=== PATIENT | male | born 1975 | race Caucasian/White ===

== ENCOUNTER 2017-01-14 18:47 | Inpatient (IN) | payer SELFPAY ==
[~2017-01-14] VITALS: Ht 182.8 cm; Wt 111.8 kg
--- NOTE | ~2017-01-14 | O ---
[place], [place] OPERATIVE NOTE [facility]: [id number] UN[facility] #: [id number] ROOM: 401 DOCTOR: CORAL GUTIERREZLEON BIRTHDATE: [birth year] DOS: 01/15/2017 HISTORY OF PRESENT ILLNESS: A 41-year-old patient who presented with chief complaint of relentless nausea, vomiting, epigastric distress, dyspepsia. The patient apparently has been on nonsteroidal anti-inflammatory. His gallbladder sonogram shows steatosis of the liver, gallbladder otherwise benign. White blood cell was 13 lately and H and H of 14 and 43, hemoglobin A1c reduced to 6.1, comprehensive metabolic panel, electrolytes balanced, calcium 7.7. Triglyceride 173. Liver function test otherwise unremarkable. CT scan of the abdomen, no evidence of nephrolithiasis or hydronephrosis. Lactic acid 1.4. PAST MEDICAL HISTORY: Cryptosporidium, unilateral history, avascular necrosis of bilateral hips, DVT, pilonidal cyst. PAST SURGICAL HISTORY: Appendectomy, hip prosthesis, vertebral decompression of the lower back, history of orchiopexy. SOCIAL HISTORY: Nonsmoker, nonalcohol consumer. FAMILY HISTORY: Noncontributory. ALLERGIES: OXYCODONE, PREDNISONE. MEDICATIONS: List has been reviewed. PROCEDURE: Today's procedure part of investigation is panendoscopy plus biopsies. PREMEDICATION: Versed and Diprivan. SCOPE: Olympus forward-viewing gastroscope Q10 video. REPORT: After putting the patient in the left lateral position and after application of lubricant to the scope, the scope was introduced. Thereafter, under direct visualization, advanced to the length of esophagus without difficulty. Distal esophageal ulcer, which is partially healing was identified, irregular Z line was defined. Biopsy obtained. Small hiatal hernia was noticed approximately 2-1/2 cm. Gastric pouch was entered. Gastritis seen. Antral biopsy obtained. Duodenal bulb, second and third part within normal limits. The patient extubated, tolerated procedure well. IMPRESSION: Distal esophageal ulcer secondary to reflux, hiatal hernia, gastritis. PLAN AND DISCUSSION: While he is inpatient, Protonix 40 mg IV b.i.d., Gaviscon 1 tablet Extra Strength tablet 1 p.c. meals and 2 at bedtime and antiemetics, soft diet, antireflux, clinical reassessment. [place], [place] OPERATIVE NOTE NAME: ANDREE COLVIN UNIT #: [id number] ROOM: 401 DOCTOR: CORAL GUTIERREZ,LEON BIRTHDATE: [birth year] LEON MONCADA MD CM:OPRECORD:OPERATIVE NOTE 1552 56 LEON MONCADA MD 01/15/171956 interface
--- NOTE | ~2017-01-14 | CON ---
[place], [place] REPORT OF CONSULTATION NAME: ANDREE COLVIN UNIT #: [id number] ROOM: 401 DOCTOR: RCIH HUYNH MD BIRTHDATE: [birth year] DOS: 01/16/2017 HISTORY OF PRESENT ILLNESS: The patient is a 41-year-old male admitted with abdominal pain at the Medical Unit. He asked to see the psychologist and a consult was called. He reported some anxiety because of his ill health, financial constraints that is all leading to him feeling a little anxious. States that he is not depressed. He has been fighting for social security, which is pending. Denies any neurovegetative symptoms of depression. Denies any manic or psychotic symptoms. Denies any thoughts of self-harm or harm to others. MEDICAL HISTORY: Pains and aches, fatty liver. MENTAL STATUS EXAMINATION: The patient is lying in bed. He is oriented x 3. He is calm and interactive. Mood euthymic, broad range affect. No evidence of psychosis at present. No suicidal or homicidal thoughts. ASSESSMENT AND PLAN: Unspecified anxiety disorder. PLAN: Discussed options of meds, but he is not receptive to any medicine at this time and he does not want any medicines. He just wanted to talk to the psychologist, so we shall monitor. RICH HUYNH MD CM:CONSTR:REPORT OF CONSULTATION 1208 01/18/17 0700 interface
[2017-01-14 18:51] VITALS: BP 112/93
[2017-01-14 19:23] LABS: BASO # 0.1 10*3/uL (0.0-0.1); BASO % 0.3 % (0.0-1.0); EOS # 0.1 10*3/uL (0.0-0.4); EOS % 0.5 % (1.0-4.0); HEMATOCRIT 49.4 % (42.0-52.0); HEMOGLOBIN 16.6 g/dl (14.0-18.0); IG # 0.2 10*3/uL (0.0-0.1); LYMPH # 4.5 10*3/uL (1.3-4.4); MEAN CELL VOLUME 88.5 fl (80.0-94.0); MEAN CORPUSCULAR HGB 29.7 pg (27.0-31.0); MEAN CORPUSCULAR HGB CONC 33.6 g/dl (33.0-37.0); MEAN PLATELET VOLUME 10.1 fl (9.6-12.3); MONO # 1.2 10*3/uL (0.1-1.0); NEUT # 11.2 10*3/uL (2.3-7.9); NEUT % 65.3 % (47.0-73.0); PLATELET COUNT AUTOMATED 385 10*3/uL (130-400); RED BLOOD COUNT 5.58 10*6/uL (4.50-5.90); RED CELL DISTRI WIDTH 13.5 % (0-14.5); WHITE BLOOD COUNT 17.2 10*3/uL (4.8-10.8)
[2017-01-14 19:39] LABS: ALBUMIN 3.7 gm/dl (3.1-4.5); ALKALINE PHOSPHATASE 150 U/L (45-117); BILIRUBIN, TOTAL 0.3 mg/dl (0.2-1.0); BUN 15 mg/dl (7-24); CARBON DIOXIDE 23 mmol/L (21-32); CHLORIDE 106 mmol/L (98-107); EST GLOM FILT AFRICAN AMERICAN > 60 ml/min; GLUCOSE 95 mg/dL (65-99); POTASSIUM 4.1 mmol/L (3.5-5.1); SGOT/AST 30 IU/L (3-35); SGPT/ALT 48 U/L (12-78); SODIUM 139 mmol/L (136-145); TOTAL PROTEIN 7.8 gm/dL (6.4-8.2)
[2017-01-14 19:43] LABS: BILIRUBIN NEGATIVE (NEGATIVE); BLOOD NEGATIVE (NEGATIVE); CLARITY CLEAR (CLEAR); COLOR YELLOW (YELLOW); GLUCOSE NEGATIVE (NEGATIVE); KETONE NEGATIVE (NEGATIVE); LEUKO ESTERASE NEGATIVE (NEGATIVE); NITRITE NEGATIVE (NEGATIVE); PH 5.5 (5.0-9.0); PROTEIN NEGATIVE (NEGATIVE); SPECIFIC GRAVITY >= 1.030 (1.005-1.030); UROBILINOGEN 0.2 E.U./dl (0.2-1.0)
[2017-01-14 19:54] LABS: BACTERIA TRACE; HYALINE CAST 16-20; MUCOUS 2+
[2017-01-14 19:56] LABS: EPITHELIAL CELLS 0-2; URINE REFLEX COMMENT NO (NO)
[2017-01-14 20:31] VITALS: BP 118/88
[2017-01-14 22:47] VITALS: BP 121/89
[2017-01-15] VITALS (8 sets, daily range): BP systolic 96–136; BP diastolic 53–94
[2017-01-15] MEDS ORDERED: ASPIRIN ADULT L81 M1 PO (04:32)
[2017-01-15 05:54] LABS: ALBUMIN 2.8 gm/dl (3.1-4.5); BILIRUBIN, TOTAL 0.4 mg/dl (0.2-1.0); BUN 12 mg/dl (7-24); CARBON DIOXIDE 28 mmol/L (21-32); CHLORIDE 109 mmol/L (98-107); CHOLESTEROL 192 mg/dL (<200); EST GLOM FILT AFRICAN AMERICAN > 60 ml/min; GLUCOSE 94 mg/dL (65-99); POTASSIUM 3.8 mmol/L (3.5-5.1); SGOT/AST 16 IU/L (3-35); SGPT/ALT 35 U/L (12-78); SODIUM 144 mmol/L (136-145); TRIGLYCERIDES 173 mg/dl (<150); VLDL CHOLESTEROL 35 mg/dL (6-40)
[2017-01-15 06:01] LABS: ALKALINE PHOSPHATASE 112 U/L (45-117); FREE T4 0.79 ng/dl (0.76-1.46); HDL CHOLESTEROL 28 mg/dl (40-60); HEMATOCRIT 43.4 % (42.0-52.0); LDL CHOLESTEROL 129 mg/dL (9-159); MEAN CORPUSCULAR HGB 29.8 pg (27.0-31.0); MEAN CORPUSCULAR HGB CONC 32.7 g/dl (33.0-37.0); MEAN PLATELET VOLUME 10.7 fl (9.6-12.3); PLATELET COUNT AUTOMATED 317 10*3/uL (130-400); RED BLOOD COUNT 4.77 10*6/uL (4.50-5.90); RED CELL DISTRI WIDTH 13.8 % (0-14.5); TOTAL PROTEIN 6.1 gm/dL (6.4-8.2); WHITE BLOOD COUNT 13.6 10*3/uL (4.8-10.8)
[2017-01-15 06:12] LABS: HEMOGLOBIN A1c 6.1 % (4.8-5.6)
[2017-01-15 06:21] LABS: PROTHROMBIN TIME 10.3 SECONDS (9.0-12.4)
[2017-01-15 06:27] LABS: HEMOGLOBIN 14.2 g/dl (14.0-18.0)
[2017-01-15 07:19] LABS: EOSINOPHIL # 0.1 10*3/uL (0-0.4); EOSINOPHILS 1 % (1-4); NEUTROPHIL # 7.5 10*3/uL (2.3-7.9); NEUTROPHILS 55 % (47-73); PLATELET SUFFICIENCY NORMAL (NORMAL); TOTAL CELLS COUNTED 100 #CELLS
[2017-01-15 13:12] LABS: FOLIC ACID 5.98 ng/mL (>5.38); VITAMIN D, 25-HYDROXY 10.4 ng/mL (30-100)
[2017-01-16] VITALS: BP 109/70
[2017-01-16 05:53] LABS: BASO % 0.4 % (0.0-1.0); EOS # 0.1 10*3/uL (0.0-0.4); EOS % 1.2 % (1.0-4.0); HEMATOCRIT 43.2 % (42.0-52.0); HEMOGLOBIN 13.9 g/dl (14.0-18.0); IG # 0.1 10*3/uL (0.0-0.1); LYMPH # 4.6 10*3/uL (1.3-4.4); LYMPH % 40.7 % (27.0-41.0); MEAN CELL VOLUME 91.9 fl (80.0-94.0); MEAN CORPUSCULAR HGB 29.6 pg (27.0-31.0); MEAN CORPUSCULAR HGB CONC 32.2 g/dl (33.0-37.0); MEAN PLATELET VOLUME 10.7 fl (9.6-12.3); MONO # 0.8 10*3/uL (0.1-1.0); MONO % 6.8 % (3.0-9.0); NEUT # 5.7 10*3/uL (2.3-7.9); NEUT % 50.3 % (47.0-73.0); PLATELET COUNT AUTOMATED 294 10*3/uL (130-400); RED CELL DISTRI WIDTH 13.4 % (0-14.5); WHITE BLOOD COUNT 11.3 10*3/uL (4.8-10.8)
[2017-01-16 06:20] LABS: ALBUMIN 3.1 gm/dl (3.1-4.5); ALKALINE PHOSPHATASE 115 U/L (45-117); BILIRUBIN, TOTAL 0.3 mg/dl (0.2-1.0); BUN 9 mg/dl (7-24); CARBON DIOXIDE 28 mmol/L (21-32); CHLORIDE 109 mmol/L (98-107); EST GLOM FILT AFRICAN AMERICAN > 60 ml/min; GLUCOSE 84 mg/dL (65-99); POTASSIUM 3.9 mmol/L (3.5-5.1); SGOT/AST 19 IU/L (3-35); SGPT/ALT 37 U/L (12-78); SODIUM 144 mmol/L (136-145); TOTAL PROTEIN 6.4 gm/dL (6.4-8.2)
[2017-01-16 06:30] LABS: INTERNATIONAL NORM RATIO 0.9 (2.0-3.5); PROTHROMBIN TIME 9.9 SECONDS (9.0-12.4)
[2017-01-16 08:00] VITALS: BP 156/98
[2017-01-16] MEDS ORDERED: ATIVAN2 M1 PO (10:41)
[2017-01-16] MEDS ORDERED: VISTARIL25 M2 PO ×2 (10:41→10:45)
[2017-01-16] MEDS ORDERED: PANTOPRAZOLE SO40 MG PO (10:42)
[2017-01-16] MEDS ORDERED: GAVISCON 80-141 EACH PO (10:42)
== END 2017-01-16 11:41 | disposition home or self-care (01) | DRG 872 ==
LOC: ED 18:47 → 4E 22:24 → EDHOLD 22:24 → 4E 22:39
PROVIDERS: Family Medicine; Internal Medicine; Nurse Practitioner Family
PROC: 0DB58ZX Excision of Esophagus, Via Natural or Artificial Opening Endoscopic, Diagnostic (ICD-10-PCS; principal; 2017-01-15)
DX: A41.9 Sepsis, unspecified organism (principal); E11.65 Type 2 diabetes mellitus with hyperglycemia; K76.0 Fatty (change of) liver, not elsewhere classified; K22.10 Ulcer of esophagus without bleeding; K52.9 Noninfective gastroenteritis and colitis, unspecified; E78.5 Hyperlipidemia, unspecified; E53.8 Deficiency of other specified B group vitamins; E66.9 Obesity, unspecified; Z96.643 Presence of artificial hip joint, bilateral; Z86.718 Personal history of other venous thrombosis and embolism; Z79.01 Long term (current) use of anticoagulants; Z90.49 Acquired absence of other specified parts of digestive tract; Z80.0 Family history of malignant neoplasm of digestive organs; Z83.3 Family history of diabetes mellitus; Z88.8 Allergy status to other drugs, medicaments and biological substances; Z68.33 Body mass index [BMI] 33.0-33.9, adult

== ENCOUNTER 2017-02-19 12:15 | Inpatient (IN) | payer SELFPAY ==
[~2017-02-19] VITALS: Ht 182.9 cm; Wt 112.1 kg
--- NOTE | ~2017-02-19 | CON ---
[place], [place] REPORT OF CONSULTATION NAME: ANDREE COLVIN UNIT #: [id number] ROOM: 518 DOCTOR: LEON MONCADA MD BIRTHDATE: [birth year] DOS: 02/22/2017 HISTORY OF PRESENT ILLNESS: A 41-year-old patient who has presented with chief complaint of hematemesis and was admitted for such through Emergency Room. I have been called for consultation, follow up on hematemesis. Initially, his white blood cell was 10, H and H of 14 and 43; followup CBC, no acute drop, H and H of 14 and 42. Blood cultures negative. Comprehensive metabolic panel, electrolyte balanced, alkaline phosphatase 143. His x-rays of the lower back, mild degenerative changes. CT scan of lumbar, no acute compression, no acute malignancy was found. Lactic acid followup was normal. Hemoglobin A1c 5.9, in normal limit. Blood cultures negative. MRI of lumbar spine, mild lumbar lordosis, no other acute pathology, no significant central stenosis. PAST MEDICAL HISTORY: History of pilonidal cyst, diabetes mellitus, fatty liver, dyslipidemia, DVT of upper extremity. He says that he has avascular necrosis of both hips. PAST SURGICAL HISTORY: Bilateral hip prosthesis, appendectomy, knee surgery. SOCIAL HISTORY: Nonsmoker, nonalcohol consumer, one can of chew tobacco per week. FAMILY HISTORY: Noncontributory. ALLERGIES: OXYCODONE, PREDNISONE; he claims was the cause of the avascular necrosis that he has taken 3 weeks, most unlikely scenario. REVIEW OF SYSTEMS: HEENT: Denies double vision, blurred vision. RESPIRATORY: Denies acute shortness of breath. CARDIOVASCULAR: Denies acute chest pain. DIGESTIVE SYSTEM: Hematemesis history. PHYSICAL EXAMINATION: VITAL SIGNS: Stable. HEENT: Head normocephalic, nontraumatic. Mouth and buccal mucosa benign. NECK: Supple, no thyromegaly, no cervical lymphadenopathy. CHEST: Symmetric anatomy, equal expansion. No wheeze, no rhonchi. HEART: Normal sinus rhythm, no gallop, no murmur. ABDOMEN: Soft. No hepato-organomegaly. Bowel sounds present. No pulsatile mass. EXTREMITIES: No cyanosis, no pedal edema. NEUROLOGIC: Alert, oriented to time, place, person. IMPRESSION: Hematemesis, etiology to be defined; history of diabetes, dyslipidemia, fatty liver. PLAN AND DISCUSSION: We are going to organize endoscopy of upper tract in search of etiology of hematemesis and clinical reassessment. [place], [place] REPORT OF CONSULTATION NAME: ANDREE COLVIN UNIT #: [id number] ROOM: 518 DOCTOR: LEON MONCADA MD BIRTHDATE: [birth year] LEON MONCADA MD CM:CONSTR:REPORT OF CONSULTATION 1643 02/23/17 0048 interface
--- NOTE | ~2017-02-19 | O ---
[place], [place] OPERATIVE NOTE [id number] UNIT #: [id number] ROOM: 518 DOCTOR: LEON MONCADA MD BIRTHDATE: [birth year] DOS: This is a 41-year-old patient who presented with chief complaint of hematemesis, undergoing investigation. Consultation has been dictated. PROCEDURE: Today's procedure, part of investigation is panendoscopy. PREMEDICATION: Versed and Diprivan. SCOPE: Olympus forward-viewing gastroscope Q10 video. REPORT: After putting the patient in the left lateral position and after application of lubricant to the scope, the scope was introduced. Thereafter, under direct visualization, I advanced through the length of esophagus without difficulty. Distal esophagitis noted. Small hiatal hernia appreciated. Gastric pouch was entered. Gastritis seen. Duodenum was entered. IMPRESSION: Severe duodenitis, duodenal erosions were identified, photographed. Since patient has had biopsies done in past, patient was suctioned out, extubated, tolerated the procedure well. IMPRESSION: Distal esophagitis, small hiatal hernia, gastritis, severe duodenitis, duodenal erosions. PLAN AND DISCUSSION: Protonix 40 mg daily, would suffice management and supportive therapy. Diet would be liberated to soft diet. LEON MONCADA MD CM:OPRECORD:OPERATIVE NOTE 1700 18 LEON MONCADA MD 02/22/172118 interface
[~2017-02-19 12:15] MED LIST: ASPIRIN ADULT L81 M1 PO; ATIVAN2 M1 PO; GAVISCON 80-141 EACH PO; PANTOPRAZOLE SO40 MG PO; VISTARIL25 M2 PO
[2017-02-19 12:24] VITALS: BP 165/62
[2017-02-19 13:51] LABS: BASO % 0.4 % (0.0-1.0); EOS # 0.1 10*3/uL (0.0-0.4); EOS % 0.7 % (1.0-4.0); HEMATOCRIT 43.5 % (42.0-52.0); HEMOGLOBIN 14.7 g/dl (14.0-18.0); LYMPH # 3.2 10*3/uL (1.3-4.4); LYMPH % 30.6 % (27.0-41.0); MEAN CELL VOLUME 89.7 fl (80.0-94.0); MEAN CORPUSCULAR HGB 30.3 pg (27.0-31.0); MEAN CORPUSCULAR HGB CONC 33.8 g/dl (33.0-37.0); MEAN PLATELET VOLUME 10.5 fl (9.6-12.3); MONO # 0.6 10*3/uL (0.1-1.0); MONO % 5.7 % (3.0-9.0); NEUT # 6.4 10*3/uL (2.3-7.9); NEUT % 61.8 % (47.0-73.0); PLATELET COUNT AUTOMATED 303 10*3/uL (130-400); RED BLOOD COUNT 4.85 10*6/uL (4.50-5.90); RED CELL DISTRI WIDTH 13.6 % (0-14.5); WHITE BLOOD COUNT 10.4 10*3/uL (4.8-10.8)
[2017-02-19 14:20] LABS: ALBUMIN 3.2 gm/dl (3.1-4.5); BUN 12 mg/dl (7-24); CHLORIDE 106 mmol/L (98-107); CREATININE 1.15 mg/dL (0.70-1.30); POTASSIUM 3.5 mmol/L (3.5-5.1); SGOT/AST 17 IU/L (3-35); SGPT/ALT 31 U/L (12-78); SODIUM 142 mmol/L (136-145)
[2017-02-19 14:22] LABS: ALKALINE PHOSPHATASE 134 U/L (45-117); TOTAL PROTEIN 6.4 gm/dL (6.4-8.2)
--- NOTE | 2017-02-19 14:29 | NUR ---
MINIMAL RELIEF FROM PAIN MED JAIN. ADDITIONAL PAIN MED ORDERS TO BE PUT IN BY ISABEL PULLIAM
--- NOTE | 2017-02-19 15:37 | NUR ---
PT TO CAT SCAN.
--- NOTE | 2017-02-19 17:00 | NUR ---
REPORT FROM ALEXYS AT 1545.-EDNA NGUYEN RN
[2017-02-19 17:06] VITALS: BP 123/59
--- NOTE | 2017-02-19 17:08 | NUR ---
RAF SANDERS IN TO SEE PT. PT STATES "I DON'T WANT TO SEE A NURSE PRACTIONER,I WANT TO SEE A DOCTOR". DR DOE AWARE AND IS TO COME SEE PT. RFA SANDERS MADE PT AWARE OF NORMAL LABS AND DIAGNOSTICS. PT STATED "I STILL WANT TO SEE A DOCTOR"---EDNA NGUYEN RN
[2017-02-19 19:04] VITALS: BP 130/74
--- NOTE | 2017-02-19 19:28 | NUR ---
THIS RN ATTEMPTED TO CALL REPORT.INSTRUCTED TO CALL BACK.
[2017-02-19 20:30] VITALS: BP 137/87
--- NOTE | 2017-02-19 20:30 | NUR ---
Time: 2029 A 41 year old MALE admitted to 5E under services of REHANA HERRMANN DO. Pt. arrived via wheel chair from ER. Chief complaint: LEFT SIDED BACK PAIN. ZHEN FISHER
--- NOTE | 2017-02-19 21:10 | NUR ---
Called Dr. Marquez with bladder scan results. Bladder scanned patient and scan said volume of 0. Patient had voided when he first got to floor from ER. Told Dr. Marquez that and no new orders received at this time.
--- NOTE | 2017-02-19 21:21 | NUR ---
Medicated with Soma po prn for low back pain. Will monitor effectiveness. Call light within reach.
--- NOTE | 2017-02-19 23:10 | NUR ---
MEDICATED WITH MS SLOW IV PUSH FOR C/O BACK PAIN.
[2017-02-20] VITALS: BP 126/84
--- NOTE | 2017-02-20 02:00 | NUR ---
RESTING IN BED WITH EYES CLOSED. PAIN MEDICATION GIVEN EARLIER APPARENTLY EFFECTIVE.
--- NOTE | 2017-02-20 06:29 | NUR ---
MEDICATED WITH SOMA FOR C/O MUSCLE SPASMS.
--- NOTE | 2017-02-20 06:35 | NUR ---
MEDICATED WITH MS 2 MG SLOW IV PUSH FOR C/O BACK PAIN RATED AN 8/10.
[2017-02-20 06:36] LABS: BASO % 0.3 % (0.0-1.0); EOS # 0.2 10*3/uL (0.0-0.4); EOS % 1.5 % (1.0-4.0); HEMATOCRIT 42.6 % (42.0-52.0); HEMOGLOBIN 13.9 g/dl (14.0-18.0); LYMPH # 3.2 10*3/uL (1.3-4.4); LYMPH % 32.3 % (27.0-41.0); MEAN CORPUSCULAR HGB 29.7 pg (27.0-31.0); MEAN CORPUSCULAR HGB CONC 32.6 g/dl (33.0-37.0); MEAN PLATELET VOLUME 10.6 fl (9.6-12.3); MONO # 0.9 10*3/uL (0.1-1.0); NEUT # 5.6 10*3/uL (2.3-7.9); NEUT % 56.1 % (47.0-73.0); PLATELET COUNT AUTOMATED 266 10*3/uL (130-400); RED BLOOD COUNT 4.68 10*6/uL (4.50-5.90); RED CELL DISTRI WIDTH 13.9 % (0-14.5)
[2017-02-20 07:09] LABS: BUN 12 mg/dl (7-24); CHLORIDE 108 mmol/L (98-107); CHOLESTEROL 184 mg/dL (<200); CREATININE 1.01 mg/dL (0.70-1.30); MAGNESIUM 2.3 mg/dL (1.5-2.1); PHOSPHOROUS 4.2 mg/dL (2.5-4.9); POTASSIUM 3.9 mmol/L (3.5-5.1); SODIUM 142 mmol/L (136-145); TRIGLYCERIDES 206 mg/dl (<150); VLDL CHOLESTEROL 41 mg/dL (6-40)
[2017-02-20 07:18] LABS: FREE T4 0.85 ng/dl (0.76-1.46); HDL CHOLESTEROL 28 mg/dl (40-60); LDL CHOLESTEROL 115 mg/dL (9-159)
[2017-02-20 07:50] LABS: VITAMIN D, 25-HYDROXY 11.9 ng/mL (30-100)
[2017-02-20 08:00] VITALS: BP 130/90
--- NOTE | 2017-02-20 11:24 | NUR ---
Pt medicated with morphine 2mg iv at his request for back pain. Pt refused toradol stating it is never effective for him.
[2017-02-20 12:00] VITALS: BP 132/80
--- NOTE | 2017-02-20 12:14 | NUR ---
pt stated morphine didnt really help his back pain and requested to have a norco at this time.
--- NOTE | 2017-02-20 13:20 | NUR ---
PT STATED NORCO WAS EFFECTIVE IN EASING HIS PAIN AND THAT HE WAS "OK RIGHT NOW".
--- NOTE | 2017-02-20 15:22 | NUR ---
PT MEDICATED WITH SOMA AT HIS REQUEST FOR CONTINUED BACK PAIN.
--- NOTE | 2017-02-20 15:32 | NUR ---
AFTER TAKING SOMA PT REQUESTED TO ALSO HAVE HIS MORPHINE FOR THE PAIN SINCE IT HAS BEEN 4 HOURS. PT MEDICATED WITH MORPHINE 2MG IV ORDERED.
[2017-02-20 16:00] VITALS: BP 124/91
--- NOTE | 2017-02-20 19:40 | NUR ---
MORPHINE GIVEN PER ORDER FOR LEFT LOWER BACK PAIN "8". SEE MAR.
[2017-02-20 20:00] VITALS: BP 130/89
--- NOTE | 2017-02-20 20:40 | NUR ---
morphine effective at reducing pain per pt.
--- NOTE | 2017-02-20 23:15 | NUR ---
C/O PAIN LEFT LOWER BACK RATED "7" SOMA AND VICODIN GIVEN PER PT REQUEST. PT. C/O ABOUT IV IN RIGHT HAND HURTING HIM. Heplock discontinued. Site symptomatic. Pressure applied. Sterile dressing applied. pt. wanted to shower before IV restarted. ED BRYANT J
--- NOTE | 2017-02-20 23:45 | NUR ---
IV started left forearm with #22 angiocath after 1ST attempts. The IV site was prepped with Chloraprep. Heparin lock attached. Sterile dressing applied. Patient tolerated precedure well. Procedure performed according to [facility] policy & procedure. ED BRYANT
[2017-02-21] VITALS: BP 135/92
--- NOTE | 2017-02-21 00:10 | NUR ---
VICODIN AND SOMA EFFECTIVE FOR LOWER LEFT BACK PAIN PER PT.
--- NOTE | 2017-02-21 04:00 | NUR ---
SLEEPING. RESP. EASY AND REG.
--- NOTE | 2017-02-21 05:25 | NUR ---
C/O LEFT LOWER BACK PAIN RATED "8" MORPHINE GIVEN PER ORDER SEE MAR.
--- NOTE | 2017-02-21 06:15 | NUR ---
MORPHINE EFFECTIVE FOR BACK PAIN PER PT.
--- NOTE | 2017-02-21 07:40 | NUR ---
PT STATES PAIN MEDS ONLY WORK FOR A SHORT TIME AND REQUESTING TO HAVE HIS SOMA AND NORCO AT THIS TIME FOR LEFT SIDED BACK PAIN.
[2017-02-21 08:00] VITALS: BP 132/70
--- NOTE | 2017-02-21 09:29 | NUR ---
PT MEDICATED WITH MORPHINE 2MG IV AT HIS REQUEST FOR LEFT SIDED BACK PAIN. STATED THE NORCO AND SOMA GIVEN AT 0726 WERE ONLY SLIGHTLY EFFECTIVE IN EASING HIS PAIN.
[2017-02-21 12:00] VITALS: BP 114/75
--- NOTE | 2017-02-21 13:14 | NUR ---
PT REQUESTING SOMETHING FOR HIS LEFT BACK PAIN. PT REQUESTING TO HAVE HIS PAIN MEDICATION SOON IT IS DO. NORCO 1 TAB GIVEN AT THIS TIME.
--- NOTE | 2017-02-21 14:23 | NUR ---
PT MEDICATED WITH MORPHINE 2MG IV AT HIS REQUEST FOR CONTINUED BACK PAIN. PT STATES THAT THE NORCO DOES NOT REALLY EASE HIS PAIN NOW.
--- NOTE | 2017-02-21 15:54 | NUR ---
PT REQUESTING SOMA AT THIS TIME. STATES NONE OF THE PAIN MED WORKS WELL OR FOR VERY LONG.
[2017-02-21 16:00] VITALS: BP 141/85
--- NOTE | 2017-02-21 19:54 | NUR ---
MORPHINE GIVEN PER ORDER FOR LOWER LEFT BACK PAIN RATED "8". DULCOLAX PILL GIVEN PER ORDER FOR CONSTIPATION PER PT. REQUEST. PT. BECAME NAUSEATED AND VOMITED. EMESIS HAD BRIGHT RED BLOOD STREAK.
[2017-02-21 20:00] VITALS: BP 130/76
--- NOTE | 2017-02-21 20:06 | NUR ---
ZOFRAN GIVEN FOR VOMITING PER ORDER. WILL CONTINUE TO MONITOR.
--- NOTE | 2017-02-21 20:30 | NUR ---
CALLED AND NOTIFIED DR. VINES OF BLOOD IN EMESIS AND WHEEZING IN RIGHT LUNG ORDERS RECEIVED.
--- NOTE | 2017-02-21 20:45 | NUR ---
CALLED AND TALKED WITH DR. MONCADA ORDERS RECEIVED.
--- NOTE | 2017-02-21 22:10 | NUR ---
TO X-RAY VIA WC FOR CHEST X-RAY
--- NOTE | 2017-02-21 22:33 | NUR ---
RETURNED FROM X-RAY VIA W.C C/O BACK PAIN AND MID ABD PAIN.
--- NOTE | 2017-02-21 22:34 | NUR ---
ZOFRAN EFFECTIVE NO MORE EMESIS AT THIS TIME.
--- NOTE | 2017-02-21 22:40 | NUR ---
SPOKE WITH DR. VINES AND NOTIFIED HIM OF PT. STILL HAVING ABD DISCOMFORT, RESULT OF CHEST X-RAY AND PT. FEELING ANXIOUS AND ORDERS RECEIVED.
--- NOTE | 2017-02-21 23:13 | NUR ---
ANXIOUS ATIVAN GIVEN PER ORDER FOR ANXIETY.
--- NOTE | 2017-02-21 23:30 | NUR ---
MORPHINE GIVEN PER ORDER FOR MID ABD PAIN AND LEFT LOWER BACK PAIN RATED "9". SEE MAR.
[2017-02-22] VITALS (8 sets, daily range): BP systolic 119–142; BP diastolic 80–95
--- NOTE | 2017-02-22 00:30 | NUR ---
PT. RESTING QUIETLY. MORPHINE AND ATIVAN EFFECTIVE FOR MADELEINE AND ANXIETY.
--- NOTE | 2017-02-22 03:59 | NUR ---
SLEEPING. RESP. EASY AND REG.
--- NOTE | 2017-02-22 06:18 | NUR ---
MORPHINE GIVEN PER ORDER FOR LEFT LOWER BACK AND MID EPIGASTRIC ABD PAIN. RATED "8 AND 9". SEE MAR.
[2017-02-22 06:54] LABS: BASO % 0.3 % (0.0-1.0); EOS # 0.1 10*3/uL (0.0-0.4); EOS % 1.1 % (1.0-4.0); HEMATOCRIT 42.3 % (42.0-52.0); LYMPH # 3.7 10*3/uL (1.3-4.4); LYMPH % 37.2 % (27.0-41.0); MEAN CELL VOLUME 92.2 fl (80.0-94.0); MEAN CORPUSCULAR HGB 30.5 pg (27.0-31.0); MEAN CORPUSCULAR HGB CONC 33.1 g/dl (33.0-37.0); MEAN PLATELET VOLUME 10.4 fl (9.6-12.3); MONO # 0.8 10*3/uL (0.1-1.0); MONO % 7.6 % (3.0-9.0); NEUT # 5.3 10*3/uL (2.3-7.9); NEUT % 53.1 % (47.0-73.0); PLATELET COUNT AUTOMATED 249 10*3/uL (130-400); RED BLOOD COUNT 4.59 10*6/uL (4.50-5.90); RED CELL DISTRI WIDTH 13.6 % (0-14.5)
--- NOTE | 2017-02-22 07:00 | NUR ---
PER PT. MORPHINE HELPING WITH PAIN.
--- NOTE | 2017-02-22 08:42 | NUR ---
PT MEDICATED WITH MORPHINE 2MG IV AT HIS REQUEST FOR BACK PAIN.
--- NOTE | 2017-02-22 08:53 | NUR ---
MESSAGE LEFT ON DR MONCADA'S VOICE MAIL FOR HIM TO CALL ME BACK REGARDING PT'S AM LABS.
--- NOTE | 2017-02-22 09:00 | NUR ---
Regulatory Affairs Analyst in to talk to patient. Patient states lives at home with and daughter. There are few steps in the home. Physician: none Pharmacy: none Home health services: none Patient's level of ADLs: MINIMAL ASSIST Patient has working utilities: all working DME: Follow-up physician's appointment after d/c: will be made by hospitalist nurse director upon discharge Does patient want to access PORTAL?: no Discharge plan discussed with patient, patient states he and his are living with their daughter, he states he doesn't have any insurance and is not able for medicaid and his disability has been denied, he states he is unable to pay for medication, informed him that he would get a paper to fill out for help with the hospital stay and we could get his medications for him, he would have to continue working with job and family services regarding his medicaid . ANDRES VASQUES
--- NOTE | 2017-02-22 10:15 | NUR ---
DR ARCINIEGA MADE AWARE THAT PT IS REQUESTING TO HAVE SOME MORE ATIVAN FOR C/O ANXIETY NOW.
--- NOTE | 2017-02-22 11:33 | NUR ---
Pt medicated with ativan and morphine prior to going down for MRI scan.
--- NOTE | 2017-02-22 15:42 | NUR ---
PHYSICAL THERAPY PAtient would like to discuss case with and his MRI with Dr prior to PT. PAtient is at patient prior baseline per patient. Will check on patients at a later date. Thank you for this referral. Juany Chirinos,PT
--- NOTE | 2017-02-22 15:45 | NUR ---
OCCUPATIONAL THERAPY Patient was in bed upon arrival and resistant to OT evaluation until he speaks with his doctor after the MRI results. Patient was politely argumentative but did report that he is functioning at his prior level with his assisting with LB ADLs. Patient requests OT recheck tomorrow. Valerie Guallpa OTR/jorge
--- NOTE | 2017-02-22 17:56 | NUR ---
PT RETURNED FROM EGD AT THIS TIME. ALERT AND ORIENTED. VSS. REQUESTING PAIN MEDICATION AND SOMETHING TO EAT.
--- NOTE | 2017-02-22 18:20 | NUR ---
PT REQUESTING TO SPEAK WITH DR ABOUT HIS DECREASE IN PAIN MEDICATION. DR ARCINIEGA DID COME UP TO SPEAK WITH PT AND PT IS ORDERED TORADOL AND SOMA ONLY NOW.
--- NOTE | 2017-02-22 20:20 | NUR ---
PATIENT INSISTING ON TALKING TO THE DOCTOR ABOUT HIS PAIN MEDICATIONS. CALLED DR. BONILLA AND HE SAID HE WOULD BE UP WHEN HE HAS A CHANCE.
[2017-02-23] VITALS: BP 124/74
--- NOTE | 2017-02-23 04:57 | NUR ---
PATIENT MEDICATED WITH ATIVAN IM AT 0057 FOR COMPLAINTS OF ANXIETY WITH EFFECTIVE RESULTS NOTED. PATIENT VERY UPSET THAT ALL NARCOTIC PAIN MEDS HAVE BEEN DISCONTINUES. RESTING IN BED WITH EYES CLOSED AT THIS TIME. NO SIGNS OR SYMPTOMS OF DISTRESS NOTED. WILL CONTINUE TO MONITOR. CALL LIGHT IN REACH.
[2017-02-23 07:40] LABS: CREATININE 1.04 mg/dL (0.70-1.30)
--- NOTE | 2017-02-23 08:00 | NUR ---
DR. SKELTON IN TO SEE PATIENT RE: PLAN OF CARE AND ENTERED DISCHARGE ORDERS.
[2017-02-23] MEDS ORDERED: FENOFIBRATE160 MG PO (08:47)
[2017-02-23] MEDS ORDERED: VITAMIN D31000 UNI1 PO (08:47)
[2017-02-23] MEDS ORDERED: CARISOPRODOL350 M1 PO (08:47)
[2017-02-23] MEDS ORDERED: PROTONIX40 MG PO (08:47)
[2017-02-23] MEDS ORDERED: B12,B-12,B 12500 MC1 PO (08:47)
--- NOTE | 2017-02-23 09:20 | NUR ---
Discharge instructions reviewed with patient/family. Patient receptive and verbalizes understanding. Follow-up care arranged. Written instructions given to patient/family. PATIENT CALLING [facility] [employer]NAG[employer] RE: MEDICATION FINANCIAL ASSISTANCE, ALSO WOULD LIKE TO SPEAK WITH RESIDENT ONE MORE TIME BEFORE LEAVING, LIST OF PCP PHONE NUMBERS PROVIDED FOR PATIENT TO CHOOSE A DOCTOR. HE DOES NOT WANT TO APPLY LIDODERM PATCH OR TAKE AM MEDS BEFORE LEAVING. DON DUMONT
--- NOTE | 2017-02-23 09:30 | NUR ---
case management recieved a call from patient stating he is going home and needs help with his medications, called pharmacy, scripts were sent to pharmacy and stamped with [facility], informed patient that he could take these stamped scripts to [facility] and they would send the hospital the bill, patient denies any other needs at this time
--- NOTE | 2017-02-23 10:15 | NUR ---
PATIENT DISCHARGED TO FRONT LOBBY BY WHEELCHAIR, ACCOMPANIED BY [facility], FOR TRANSPORT HOME BY PRIVATE VEHICLE WITH .
--- NOTE | 2017-02-23 11:26 | NUR ---
PT UNAVAILABLE FOR PULSE OX CHECK
== END 2017-02-23 10:15 | disposition home or self-care (01) | DRG 378 ==
LOC: ED 12:15 → EDHOLD 18:01 → 5E 18:01
PROVIDERS: Internal Medicine; Internal Medicine Gastroenterology; Nurse Practitioner Family; ADMIT Internal Medicine
PROC: 0DJ08ZZ Inspection of Upper Intestinal Tract, Via Natural or Artificial Opening Endoscopic (ICD-10-PCS; principal; 2017-02-22)
DX: K92.0 Hematemesis (principal); E87.2 Acidosis; K76.0 Fatty (change of) liver, not elsewhere classified; E44.1 Mild protein-calorie malnutrition; M54.5 Low back pain; E11.65 Type 2 diabetes mellitus with hyperglycemia; K26.9 Duodenal ulcer, unspecified as acute or chronic, without hemorrhage or perforation; R26.2 Difficulty in walking, not elsewhere classified; E78.5 Hyperlipidemia, unspecified; E66.9 Obesity, unspecified; E55.9 Vitamin D deficiency, unspecified; R74.8 Abnormal levels of other serum enzymes; R00.0 Tachycardia, unspecified; E53.8 Deficiency of other specified B group vitamins; K44.9 Diaphragmatic hernia without obstruction or gangrene; K29.70 Gastritis, unspecified, without bleeding; K29.80 Duodenitis without bleeding; G89.29 Other chronic pain; K20.8 Other esophagitis; Z60.2 Problems related to living alone; Z96.643 Presence of artificial hip joint, bilateral; Z68.30 Body mass index [BMI] 30.0-30.9, adult; Z88.8 Allergy status to other drugs, medicaments and biological substances; Z79.899 Other long term (current) drug therapy; Z90.49 Acquired absence of other specified parts of digestive tract; Z83.3 Family history of diabetes mellitus; Z80.0 Family history of malignant neoplasm of digestive organs; Z84.89 Family history of other specified conditions; Z86.718 Personal history of other venous thrombosis and embolism; Z79.82 Long term (current) use of aspirin; R33.9 Retention of urine, unspecified